=== PATIENT | female | born 1965 | race Asian ===

== ENCOUNTER 2019-04-21 10:55 | Emergency (ER) | payer BC, OTHER ==
[~2019-04-21] VITALS: Ht 160 cm; Wt 76.8 kg
[~2019-04-21 10:55] MED LIST: ATOR10TA65 PO; LOSA100T15 PO; METF500T24 PO; METO-319 PO
[2019-04-21 11:03] VITALS: Ht 160 cm; Wt 76.8 kg
--- NOTE | 2019-04-21 11:45 | ERD ---
ER Documentation Chief Complaint Chief Complaint HIGH BLOOD PRESSURE SBP 200'S.WEAKNESS HPI But has since resolved 53-year-old female history of diabetes on metformin and hypertension on losartan and metoprolol patient was having mild shortness of breath that has since resolved. Patient took an additional lisinopril which she is not prescribed this morning when she saw her systolic blood pressure was 200. She denies any headache, nausea or vomiting, blurry vision, chest pain. Patient is also endorsing mild dysuria for the past day. ROS All systems reviewed and are negative except as per history of present illness. Medications Home Meds Reported Medications Metformin Hcl* (Metformin Hcl*) 500 Mg Tablet, 500 MG PO WITH BREAKFAST DINNE, #60 TAB 04/21/19 Losartan Potassium* (Losartan Potassium*) 100 Mg Tablet, 100 MG PO DAILY, TAB 04/21/19 Metoprolol Succinate* (Toprol XL*) 50 Mg Tab.er.24h, 50 MG PO BID, #30 TAB 04/21/19 Atorvastatin Calcium (Atorvastatin Calcium) 10 Mg Tablet, 10 MG PO QHS, #30 TAB 04/21/19 Allergies Allergies: Coded Allergies: No Known Allergy (Unverified , 04/21/19) PMhx/Soc History of Surgery: Yes (C SECTION) Anesthesia Reaction: No Hx Neurological Disorder: No Hx Respiratory Disorders: No Hx Cardiac Disorders: Yes (HTN) Hx Miscellaneous Medical Probl: Yes (HIGH CHOLESTEROL) Hx Alcohol Use: No Hx Substance Use: No Hx Tobacco Use: No Smoking Status: Never smoker Physical Exam Vitals Vital Signs Date Temp Pulse Resp B/P (MAP) Pulse Ox O2 O2 Flow FiO2 Time Delivery Rate 04/21/19 98.3 77 18 153/92 100 11:03 (112) Physical Exam Const: No acute distress Head: Atraumatic Eyes: Normal Conjunctiva ENT: Normal External Ears, Nose and Mouth. Neck: Full range of motion. No meningismus. Resp: Clear to auscultation bilaterally Cardio: Regular rate and rhythm, no murmurs Abd: Soft, non tender, non distended. Normal bowel sounds Skin: No petechiae or rashes Back: No midline or flank tenderness Ext: No cyanosis, or edema Neur: Awake and alert Psych: Normal Mood and Affect Result Diagram: 04/21/19 1137 04/21/19 1137 Results 24 hrs Laboratory Tests Test 04/21/19 11:37 White Blood Count 7.7 10^3/ul Red Blood Count 4.48 10^6/ul Hemoglobin 12.6 g/dl Hematocrit 38.8 % Mean Corpuscular Volume 86.6 fl Mean Corpuscular Hemoglobin 28.1 pg Mean Corpuscular Hemoglobin Concent 32.5 g/dl Red Cell Distribution Width 12.6 % Platelet Count 287 10^3/UL Mean Platelet Volume 8.4 fl Immature Granulocytes % 0.900 % Neutrophils % 74.1 % Lymphocytes % 16.7 % Monocytes % 6.0 % Eosinophils % 1.6 % Basophils % 0.7 % Nucleated Red Blood Cells % 0.0 /100WBC Immature Granulocytes # 0.070 10^3/ul Neutrophils # 5.7 10^3/ul Lymphocytes # 1.3 10^3/ul Monocytes # 0.5 10^3/ul Eosinophils # 0.1 10^3/ul Basophils # 0.1 10^3/ul Nucleated Red Blood Cells # 0.0 10^3/ul Sodium Level 140 mmol/L Potassium Level 4.3 mmol/L Chloride Level 104 mmol/L Carbon Dioxide Level 27 mmol/L Anion Gap 9 Blood Urea Nitrogen 10 mg/dl Creatinine 0.73 mg/dl Est Glomerular Filtrat Rate mL/min > 60 mL/min Glucose Level 172 mg/dl Calcium Level 9.4 mg/dl Troponin I < 0.012 ng/ml Procedures/MDM Patient presenting HTN. Has a known history of HTN Patient endorsing compliance with medications, without evidence of end organ damage on history or exam, given patient took losartan and lisinopril this morning we will get basic labs to ensure her kidney function is okay Blood pressure is since improved systolic 150 in the emergency department will not give more medication this time out of fear for lowering it too much. Patient is asymptomatic. 12 lead ECG Time: 1136 Rate/Rhythm: Normal Sinus Rhythm at a rate of [73] beats per minute QRS, ST, T-waves: No changes consistent w/ acute ischemia nonspecific T wave changes Impression: No evidence of ischemia or arrhythmia Alternative diagnoses that were considered but unlikely given presentation include: toxidrome, anxiety disorder, heart failure, thyroid disorder, ACS, stroke Departure Diagnosis: Primary Impression: Hypertension Hypertension type: essential hypertension Qualified Codes: I10 - Essential (primary) hypertension Condition: Stable Additional Instructions: You were evaluated in the emergency department for high blood pressure (hypertension). At this time, we felt that you can continue your normal blood pressure medication. Please follow-up with your primary care doctor in 2-3 days What is high blood pressure?-High blood pressure is a condition that puts you at risk for heart attack, stroke, and kidney disease. It does not usually cause symptoms. But it can be serious. When your doctor or nurse tells you your blood pressure, he or she will say 2 numbers. For instance, your doctor or nurse might say that your blood pressure is "140 over 90." The top number is the pressure inside your arteries when your heart is nany. The bottom number is the pressure inside your arteries when your heart is relaxed. How can I lower my b lood pressure?-If your doctor or nurse has prescribed blood pressure medicine or changed your blood pressure dose the most important thing you can do is to take it. If it causes side effects, do not just stop taking it. Instead, talk to your doctor or nurse about the problems it causes. He or she might be able to lower your dose or switch you to another medicine. If cost is a problem, mention that too. He or she might be able to put you on a less expensive medicine. Taking your blood pressure medicine can keep you from having a heart attack or stroke, and it can save your life! Can I do anything on my own?-You have a lot of control over your blood pressure. To lower it: Lose weight (if you are overweight) Choose a diet low in fat and rich in fruits, vegetables, and low-fat dairy products Reduce the amount of salt you eat Do something active for at least 30 minutes a day on most days of the week Cut down on alcohol (if you drink more than 2 alcoholic drinks per day) It's also a good idea to get a home blood pressure meter. People who check their own blood pressure at home do better at keeping it low and can sometimes even reduce the amount of medicine they take. LIFESTYLE CHANGES-Making lifestyle changes is an important first step in the treatment of high blood pressure. In some patients, lowering sodium and alcohol intake, keeping weight in the ideal range, engaging in regular aerobic exercise, and stopping smoking can be sufficient to control high blood pressure. However, many patients also require one or more medications to lower the blood pressure. HIGH BLOOD PRESSUREMEDICATIONS-There are various medications that are commonly used to treat high blood pressure. Although generally well tolerated, high blood pressure medications can cause side effects; the side effects depend upon the specific drug given, dose, and other factors. Some side effects result from lowering of the blood pressure, usually if the blood pressure lowering is abrupt, and therefore can be caused by any high blood pressure medication. These include dizziness, drowsiness, lightheadedness, or feeling tired. They usually subside after a few weeks when the body has adapted to the lower blood pressure. ALFREDO MORENO MD Apr 21, 2019 11:45
[2019-04-21 13:56] VITALS: BP 144/87; PULSE 74; RESP 18
== END 2019-04-21 14:58 | disposition home or self-care (01) ==
LOC: E/R 10:55
DX: I10 Essential (primary) hypertension (principal); E11.9 Type 2 diabetes mellitus without complications; Z79.84 Long term (current) use of oral hypoglycemic drugs
CPT/HCPCS: 36415; 71045; 80048; 81003; 84484; 85025; 93005